=== PATIENT | female | born 1960 | race Caucasian/White ===

== ENCOUNTER 2016-11-02 09:20 | Emergency (ER) | payer OTHER ==
--- NOTE | ~2016-11-02 | CR127 ---
[facility] A Service of [facility] & [facility] RADIOLOGY TEXT RESULTS PATIENT: LEXIE WALTON LOCATION: CFTX : 60 UNIT #: [id number] AGE: [address]: Keesha Newsome SEX: F ORDER DR: [id number] [facility] [address] [place], [place] [address] [id number] E MR#: [id number] Acc #: [id number] NAME: LEXIE WALTON : 1960 SEX: F STUDY DATE/TIME: 11/02/2016 9:44 UNIT: [facility] ROOM: STUDY DESCRIPTION: CR Foot Complete Min 3 View Rt Attending Physician: Keesha Newsome P.A.-C. Ordering Physician: Keesha Newsome P.A.-C. Primary Care Physician: Salvatore Zhang M.D. MEDICAL IMAGING REPORT This report is preliminary unless electronic signature is present EXAM Right foot 3 views, 11/02/2016 HISTORY Right foot pain for 2 days. Hit foot on wall. FINDINGS There is some dorsal soft tissue swelling but there is no fracture or dislocation. Dictated by... Yaakov Olson M.D. THIS IS AN ELECTRONICALLY VERIFIED REPORT Yaakvo Olson M.D. at 11/02/2016 3:56 PM JUNG/chrissy TD: 11/02/2016 12:13 JOB #: [id number] MEDICAL IMAGING REPORT Page 1 of 1 COPY
[~2016-11-02 09:20] MED LIST: FLEXERIL10 MG PO; LORTAB 5/500 TA1 TA1 PO; METOPROLOL SUCC25 MG PO; NEXIUM PO; ZITHROMAX PO
== END 2016-11-02 11:15 | disposition home or self-care (01) ==
LOC: CED 09:20 → CFTX 09:20
DX: S93.621A Sprain of tarsometatarsal ligament of right foot, initial encounter (principal); Z88.0 Allergy status to penicillin; Z88.8 Allergy status to other drugs, medicaments and biological substances; W22.8XXA Striking against or struck by other objects, initial encounter; Y92.009 Unspecified place in unspecified non-institutional (private) residence as the place of occurrence of the external cause
CPT/HCPCS: 29515; 73630; 99283